=== PATIENT | male | born 1965 | race Caucasian/White ===

== ENCOUNTER → 2021-06-06 08:02 | Outpatient (CLI) | payer MEDICARE, SELFPAY ==
[2021-06-06 10:53] LABS: ALB/GLOB Ratio 0.8 RATIO (0.9-2.4); AST(SGOT) 19 U/L (15-37); Alanine Aminotransfer ALT/SGPT 37 U/L (16-61); Albumin, Serum 3.4 g/dL (3.2-5.0); Alkaline Phosphatase 95 U/L (45-117); Anion Gap 5 (5-15); BUN 15 mg/dL (7-18); BUN/Creat Ratio 16.5 RATIO (10-20); Calcium,Total 8.6 mg/dL (8.5-10.1); Chloride 107 mmol/L (98-107); Cholesterol 215 mg/dL (200); Creatinine, Serum 0.91 mg/dL (0.70-1.30); EST Glomerular Filtration Rate 91 mL/min (>60); Est Glom Filt Rate - Afr Amer 110 mL/min (>60); Globulin 4.4 g/dL (2.2-4.2); Glucose 102 mg/dL (74-106); High Density Lipoprotein 45 mg/dL; PSA,Total - Annual Screen 1.04 ng/mL (0.00-4.00); Potassium 4.2 mmol/L (3.5-5.1); Protein, Total 7.8 g/dL (6.4-8.2); Sodium Level 139 mmol/L (136-145); Triglycerides 82 mg/dL; Very Low Density Lipoprotein 16 mg/dL (5-40)
[2021-06-06 11:37] LABS: Vitamin D,25 Hydroxy 39.1 ng/mL
== END ==
PROVIDERS: PCP Family Medicine; Referring Provider Family Medicine; Visit Provider Family Medicine
DX: G89.4 Chronic pain syndrome (principal); Z13.220 Encounter for screening for lipoid disorders; E55.9 Vitamin D deficiency, unspecified; Z12.5 Encounter for screening for malignant neoplasm of prostate; I10 Essential (primary) hypertension
CPT/HCPCS: 36415; 80053; 80061; 82306; 84153; G0103

== ENCOUNTER 2025-03-21 07:56 | Outpatient (CLI) | payer MEDICARE, SELFPAY ==
[2025-03-21 11:28] LABS: AST(SGOT) 23 U/L (<=37); Alanine Aminotransfer ALT/SGPT 30 U/L (<=46); Albumin, Serum 4.0 g/dL (3.4-4.8); Alkaline Phosphatase 92 U/L (40-129); Anion Gap 12 (5-15); BUN 15 mg/dL (4-19); BUN/Creat Ratio 17.7 RATIO (10-20); Calcium,Total 8.8 mg/dL (7.6-11.0); Carbon Dioxide 21.8 mmol/L (21.0-32.0); Chloride 103 mmol/L (98-108); Cholesterol 214 mg/dL (<=200); Globulin 3.4 g/dL (2.2-4.2); Glucose 99 mg/dL (70-99); Low Density Lipoprotein Calc. 153 mg/dL; Potassium 4.3 mmol/L (3.3-5.1); Triglycerides 126 mg/dL; Very Low Density Lipoprotein 25 mg/dL (5-40); cholesterol:hdl ratio screen 5.90
[2025-03-21 11:37] LABS: PSA,Total - Annual Screen 0.59 ng/mL (0.02-4.00); Vitamin D,25 Hydroxy 28.8 ng/mL (30-100)
== END 2025-03-21 23:59 | disposition home or self-care (01) ==
LOC: MFPLAB 07:59
PROVIDERS: PCP Family Medicine; Referring Provider Family Medicine; Visit Provider Family Medicine
DX: G89.4 Chronic pain syndrome (principal); Z13.220 Encounter for screening for lipoid disorders; Z12.5 Encounter for screening for malignant neoplasm of prostate; E55.9 Vitamin D deficiency, unspecified
CPT/HCPCS: 36415; 80053; 80061; 82306; 84153; G0103